=== PATIENT | male | born 1975 | race Caucasian/White ===

== ENCOUNTER 2020-12-02 15:02 | Emergency (ER) | payer BC ==
[~2020-12-02] VITALS: Ht 180.3 cm; Wt 93.9 kg
[~2020-12-02 15:02] MED LIST: LIDOcaine 1% W/epiNEPHrine 1:100,000 20ml vial ONE
[2020-12-02 15:04] VITALS: BP 140/94
[2020-12-02] MEDS ORDERED: TETanus/Pertussis (Acell)/Diphther VAC/PF (Tdap-Adult) 0.5ml syringe IMVAC ONE (16:20)
== END 2020-12-02 18:31 | disposition home or self-care (01) ==
LOC: ER 15:03
DX: S61.211A Laceration without foreign body of left index finger without damage to nail, initial encounter (principal); W26.8XXA Contact with other sharp object(s), not elsewhere classified, initial encounter; Y93.89 Activity, other specified; Y92.89 Other specified places as the place of occurrence of the external cause; Y99.8 Other external cause status
CPT/HCPCS: 12001; 73120; 99283

== ENCOUNTER 2020-12-04 11:51 | Emergency (ER) | payer BC ==
[~2020-12-04] VITALS: Ht 180.3 cm; Wt 95.5 kg
[2020-12-04 12:10] VITALS: BP 134/91
[2020-12-04] MEDS ORDERED: acetaminophen 325mg tablet PO ONE (13:05)
[2020-12-04] MEDS ORDERED: ketorolac trometh. 30mg/ml inj. IM ONE ×2 (13:10→13:30)
== END 2020-12-04 13:45 | disposition home or self-care (01) ==
LOC: ER 11:53
DX: M79.645 Pain in left finger(s) (principal); R22.32 Localized swelling, mass and lump, left upper limb
CPT/HCPCS: 96372; 99284; J1885

== ENCOUNTER 2021-02-06 16:49 | Emergency (ER) | payer BC ==
[~2021-02-06] VITALS: Ht 180.3 cm; Wt 90.9 kg
[2021-02-06 17:08] VITALS: BP 109/75
[2021-02-06] MEDS ORDERED: benzonatate 100mg capsule PO ONE (18:05)
[2021-02-06 18:45] LABS: BASOPHILS % (AUTO) 0.1 % (0-1); EOSINOPHILS % (AUTO) 0.8 % (0-6); HEMATOCRIT 43.5 % (42.0-52.0); HEMOGLOBIN 14.6 g/dl (14.0-17.9); LYMPHOCYTES # (AUTO) 0.8 X10'3 (1.1-4.8); LYMPHOCYTES % (AUTO) 12.8 % (21-51); MEAN CORPUSCULAR HEMOGLOBIN 29.1 PG (27.0-31.0); MEAN CORPUSCULAR HGB CONC 33.6 g/dL (33.0-36.5); MEAN CORPUSCULAR VOLUME 86.4 FL (78-98); MEAN PLATELET VOLUME 9.9 FL (7.4-10.4); MONOCYTES # (AUTO) 0.7 X10'3 (0-0.9); MONOCYTES % (AUTO) 11.9 % (2-12); NEUTROPHILS # (AUTO) 4.5 X10'3 (1.8-7.7); NEUTROPHILS % (AUTO) 74.4 % (42-75); PLATELET COUNT 152 X10'3 (140-440); RED BLOOD COUNT 5.04 X10'6 (4.70-6.10); RED CELL DISTRIBUTION WIDTH 13.3 % (11.5-14.5); WHITE BLOOD COUNT 6.1 X10'3 (4.5-11.0)
[2021-02-06 18:54] LABS: ALANINE AMINOTRANSFERASE 40 U/L (12-78); ALBUMIN 3.1 G/DL (3.4-5.0); ALBUMIN/GLOBULIN RATIO 0.7 (1.1-1.5); ALKALINE PHOSPHATASE 53 IU/L (46-116); ANION GAP 8 (8-16); ASPARTATE AMINO TRANSFERASE 34 U/L (10-37); BILIRUBIN,TOTAL 0.7 MG/DL (0.1-1.0); BLOOD UREA NITROGEN 9 MG/DL (7-18); BUN/CREATININE RATIO 10.5 (5.4-32.0); CALCIUM 8.3 MG/DL (8.5-10.1); CHLORIDE 101 MMOL/L (99-107); CREATININE 0.86 MG/DL (0.60-1.10); GLUCOSE 158 MG/DL (70-104); POTASSIUM 3.8 MMOL/L (3.5-5.1); SODIUM 135 MMOL/L (135-145); TOTAL PROTEIN 7.6 G/DL (6.4-8.2); eGFR > 90 ML/MIN
[2021-02-06] MEDS ORDERED: ACET1TAB25 PO (19:11)
[2021-02-06] MEDS ORDERED: BENZ-16 PO (19:11)
[2021-02-06] MEDS ORDERED: AZIT250T83 PO (19:11)
== END 2021-02-06 19:26 | disposition home or self-care (01) ==
LOC: ER 16:51
DX: U07.1 COVID-19 (principal); R19.7 Diarrhea, unspecified; R05 Cough; R43.8 Other disturbances of smell and taste; R53.1 Weakness; R53.83 Other fatigue; R11.0 Nausea; Z79.2 Long term (current) use of antibiotics; Z79.899 Other long term (current) drug therapy
CPT/HCPCS: 36415; 80053; 85025; 99283

== ENCOUNTER 2021-06-10 15:10 | Emergency (ER) | payer BC ==
[~2021-06-10] VITALS: Ht 180.3 cm; Wt 97.0 kg
[2021-06-10 15:31] VITALS: BP 146/89
[2021-06-10] MEDS ORDERED: LIDOcaine 1% 30ml preserv. free vial IJ ONE (17:55)
[2021-06-10] MEDS ORDERED: HYDR-3965 PO (19:23)
[2021-06-10] MEDS ORDERED: CEPH250T PO (19:23)
[2021-06-10] MEDS ORDERED: cephalexin 500mg capsule PO ONE (19:25)
[2021-06-10] MEDS ORDERED: acetaminophen 325mg tablet PO ONE (19:25)
== END 2021-06-10 19:44 | disposition home or self-care (01) ==
LOC: ER 15:11
DX: S61.313A Laceration without foreign body of left middle finger with damage to nail, initial encounter (principal); X58.XXXA Exposure to other specified factors, initial encounter; Y93.89 Activity, other specified; Y92.89 Other specified places as the place of occurrence of the external cause; Y99.8 Other external cause status
CPT/HCPCS: 12001; 73140; 99283

== ENCOUNTER 2025-02-10 13:12 | Emergency (ER) | payer BC ==
[~2025-02-10] VITALS: Ht 180.3 cm; Wt 99.8 kg
[2025-02-10 13:27] VITALS: BP 135/91; PULSE 74; RESP 18; O2SAT 95
--- NOTE | 2025-02-10 14:04 | Physician Documentation ---
History of Present Illness ~ Chief Complaint: Laceration Stated Complaint: L ARM LAC Time Seen by MD: 13:52 Primary Medical Doctor: LEROY CHAIREZ Patient is seen today with complaints of laceration to his left distal forearm ulnar aspect just proximal to the wrist joint. Patient states this occurred just earlier today while using an Exact[employer] knife any accidentally stabbed a knife into his wrist. Patient denies any suicidal ideation. He denies any depression. Patient states it was bleeding but he applied pressure and has since stopped bleeding. Patient has no other concern or complaint at this time. He denies any chest pain or shortness of breath or abdominal pain or nausea, vomiting, diarrhea. Tetanus Within 5 Years: Yes Medication Reconciliation Allergies: Coded Allergies: No Known Allergies (Unverified , 02/10/25) Past Medical History Past Medical History: No Pertinent History, *PULMONARY* Past Surgical History: orthopedic surgeries Alcohol Use: None Drug Use: none Lives with: Family Lives In: Home Occupation: employed Review of Systems Constitutional: Denies: chills, fever, weakness Eyes: Denies: pain, blurred vision ENT: Denies: ear pain, nose pain, throat pain, mouth pain Respiratory: Denies: cough, shortness of breath Cardiovascular: Denies: chest pain, palpitations Gastrointestinal: Denies: abdominal pain, nausea, vomiting Genitourinary: Denies: burning, dysuria Male Genitalia: Denies: penile discharge, testicular pain Neurological: Denies: headache, dizziness Musculoskeletal: Denies: pain, swelling Integumentary: Denies: rash, lesions Allergic/Immunologic: Denies: hives, itching Hematologic/Lymphatic: Denies: no symptoms reported Psychiatric: Denies: depression, anxiety Physical Exam Vital Signs: Temperature: 98.6, Source: Temporal, Heart Rate: 74, Respiratory Rate: 18, BP: 135/91, Pulse Oximetry: 95, Weight: 99.850 Physical Exam General: Awake and Alert, no acute distress. HEENT: Conjunctiva pink, Sclera clear, Mucus Membranes moist. Neck: Supple without masses and tenderness. Resp: Unlabored. Lungs clear to auscultation bilaterally. Heart: Regular Rate and rhythm, normal S1 and S2 without murmur, rub or gallop. Musculoskeletal: Patient on exam has 1.5 cm laceration to the volar aspect of his left wrist ulnar side just proximal to the wrist joint. Patient is neurovascularly intact distally. Motor function is intact distally. Extremities: No cyanosis,clubbing or edema. Skin: Warm and Dry. Procedures Laceration/Wound Repair Laceration : Procedure Note Procedure note: 5 cc of 1% lidocaine with epinephrine was used to achieve local anesthesia of 1.5 cm laceration to left wrist ulnar aspect volar aspect. Wound was irrigated copiously with normal saline and iodine. Patient tolerated well. One horizontal mattress suture and one simple suture was used to achieve closure of the laceration with 5-0 Prolene. Wound was bandaged using nonstick dressing. Progress Results/Orders Results/Orders Completed Orders - POLLY CALVILLO Lidocaine 1% W/Epi 1:100,000 (Xylocaine (02/10/25 14:03) Vital Signs 02/10/25 13:27 Temp 98.6 Pulse 74 Resp 18 B/P (MAP) 135/91 Pulse Ox 95 Medical Decision Making Findings Patient is seen today with complaints of laceration to his left distal forearm ulnar aspect just proximal to the wrist joint. Patient states this occurred just earlier today while using an Ex[employer] knife any accidentally stabbed a knife into his wrist. Patient denies any suicidal ideation. He denies any depression. Patient states it was bleeding but he applied pressure and has since stopped bleeding. Patient has no other concern or complaint at this time. He denies any chest pain or shortness of breath or abdominal pain or nausea, vomiting, diarrhea. Laceration was sutured today by myself and patient tolerated well. Patient will follow up in 7-10 days for suture removal. Return to ED with any worsening, concerning or changing symptoms. Departure Disposition: 01 HOME / SELF CARE / HOMELESS Impression: Primary Impression: Laceration Condition: Improved Discharge Instructions: Laceration Care, Adult, [id number] Additional Instructions: Laceration was sutured today by myself and patient tolerated well. Patient will follow up in 7-10 days for suture removal. Return to ED with any worsening, co ncerning or changing symptoms. Referrals: NO PRIMARY CARE PROVIDER (PCP) Signature Scribe Signature: No scribe Attestation: No scribe POLLY CALVILLO Feb 10, 2025 14:04
[2025-02-10] MEDS: LIDOcaine 1% W/epiNEPHrine 1:100,000 20ml vial SQ STA (14:43)
[2025-02-10 17:00] VITALS: TEMP 98.6
== END 2025-02-10 17:02 | disposition home or self-care (01) ==
LOC: ER 13:13
DX: S51.812A Laceration without foreign body of left forearm, initial encounter (principal); W26.0XXA Contact with knife, initial encounter; Y93.89 Activity, other specified; Y92.89 Other specified places as the place of occurrence of the external cause; Y99.8 Other external cause status
CPT/HCPCS: 12001; 99282; A6222; J7030; A6258; A6449